=== PATIENT | female | born 1960 | race African-American/Black ===

== ENCOUNTER → 2017-12-10 | Day surgery (SDC) | payer OTHER ==
[~2017-12-10] VITALS: Ht 160 cm; Wt 77.1 kg
--- NOTE | 2017-12-10 09:46 | Operative Report ---
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 The pt. visited the medical practice for a follow up visit with me asking for better pain control and to try the Burst stimulation ( " to upgrade her pain stimulation with the newly available system". I told the pt about the risks and benefits of the procedure and scheduled the pt for above procedure Operative/Procedure Note Note: The pt was given Kefzol 2 gm IV prior to the procedure and placed prone on the OR table and the thoracic , lumbar left gluteal area prepped sterile. Fluoroscopy was used and the position of the cervical, thoracic epidural electrodes was noted. Combination of 1% lidocaine with epi and .05% Bupivacaine was used for local infiltration and total amount used was noted in nurse chart. After infiltration of skin in the right gluteal area, over the previously marked skin - cephalad to the IPG upper end, and the skin incision was carefully to subcutaneous plane and the upper part of capsule was incised , the IPG was delivered in the surgical field. superior subcutaneous flap was raised to accommodate the Proclaim 5- Elite ( this battery was decided by the pt, after her multiple discussions about the longevity of two single cell IPGs available with [employer] system, for above stimulation purpose). The electrodes were removed from IPG ports, after unscrewing the ports and they were connected to the Proclaiim 5 Elite IPG and impedance was checked, for both electrodes to be WNL. Hemostasis was secured in the wound and careful Bovie diathermy was used. The IPG was placed in the subcutaneous pocked with factory label being seen through the wound. The wound was closed in layers and skin stapled. The pt remained stable hemodynamically and intact neurologically, in the recovery room with 5/5 MP in both lower extremities at the ankle level. The pt is being discharged with few programs and post op instructions. Findings: unchanged position of the previously placed percutaneous epidural electrode -- right cervical and right thoracic paramedian area Discharge Disposition: Same Day Admissions Additional Comments: none CC: Pernell PADILLA,Edwin Richard
--- NOTE | 2017-12-14 09:02 | RADIOLOGY REPORT ---
EXAMINATION: XR LUMBAR SPINE CLINICAL INFORMATION: Intrathecal battery replacement. COMPARISON: None TECHNIQUE: Intraoperative fluoroscopic guidance was provided for intrathecal battery replacement for Dr. Shoemaker. Fluoroscopy time: 0.6 seconds. Total number of images: 4. FINDINGS: Intraoperative fluoroscopic spot views demonstrate an intrathecal wire and stimulator. A battery pack is seen projecting over the right iliac bone. Refer to operative notes for details. IMPRESSION: Intrathecal pump insertion. Refer to operative notes for details.
== END ==
LOC: STS 12-01 07:00
DX: T85.193A Other mechanical complication of implanted electronic neurostimulator, generator, initial encounter (principal); G90.521 Complex regional pain syndrome I of right lower limb; G90.511 Complex regional pain syndrome I of right upper limb
CPT/HCPCS: 72020; C1820; J0690; J2250